=== PATIENT | male | born 1975 | race Caucasian/White ===

== ENCOUNTER 2020-04-07 23:46 | Emergency (ER) | payer OTHER, SELFPAY ==
[2020-04-07 23:49] VITALS: BP 124/89; PULSE 61; RESP 18; TEMP 37.1; O2SAT 99; BMI 29.2
--- NOTE | 2020-04-08 00:18 | EKG12_ITS ---
Test Reason : DYSRHYTHMIA Blood Pressure : / mmHG Vent. Rate : 063 BPM Atrial Rate : 063 BPM P-R Int : 186 ms QRS Dur : 150 ms QT Int : 440 ms P-R-T Axes : 036 044 001 degrees QTc Int : 450 ms Normal sinus rhythm Right bundle branch block Abnormal ECG Confirmed by MARQUEZ CLEMENS MD ([id number]), desk editor SAMI MADDOX ([id number]) on 04/12/2020 7:54:40 AM Also confirmed by MARQUEZ CLEMENS MD ([id number]), desk editor ARNOLDO AVERY ([id number] on 04/13/2020 8:51:12 AM Referred By: JONI Confirmed By:BRITTANY CLEMENS MD
--- NOTE | 2020-04-08 00:23 | ED.DCSUM_ITS ---
History of Present Illness Chief Complaint: Syncope Informant: Patient Onset: Today Narrative: Patient brought by EMS from a football game for syncopal episode. He states he has been on his feet since 6 PM nearly 6 hours now, states he was talking with another person, they were telling him about family member having a heart attack. He states he felt tingling in his chest and lightheaded, next thing he knew he will do he was awake eating. No previous similar symptoms in the past. Reported he was sweaty and hypotensive responded to fluids. He denies any recent vomiting or diarrhea. Denies urinary symptoms. Denies any cough or fevers. He denies any past medical history. No similar events in the past. Currently feels back to normal. Prior similar symptoms: No Past Medical History - Allergies and Home Meds Allergies/Adverse Reactions: Allergies No Known Allergies Allergy (Verified 04/07/20 23:47) Primary Care Physician: Cricket Manzo MD [Primary Care Provider] - Past Medical History: None Smoking Status: Never smoker Review of Systems General: Denies: Chills, Fever, Sweats Eyes: Denies: Visual changes - bilaterally, Diplopia ENT: Denies: Rhinorrhea, Sore throat Cardiovascular: Denies: Chest pain, Palpitations Respiratory: Denies: Dyspnea, Cough, Dyspnea on exertion Gastrointestinal: Denies: Abdominal pain, Nausea, Vomiting, Diarrhea, Melena, Hematochezia Genitourinary: Denies: Dysuria, Hematuria, Frequency Musculoskeletal: Denies: Back pain, Extremity Pain Skin: Denies: Rash, Wounds Neurological: Reports: - - Syncope. Denies: Headache, Weakness, Numbness Physical Exam Vital Signs/Narrative: Vital Signs Temp Pulse Resp BP Pulse Ox 04/07/20 23:49 98.8 F 61 18 124/89 H 99 Inital Vital Signs reviewed: Yes General: Well nourished, Well developed, No Acute Distress Head: Normocephalic, Atraumatic Eyes: Perrl, EOMI ENT: Moist mucous membranes, No rhinorrhea Neck: Supple, Nontender Cardiovascular: Regular rate, Regular rhythm, No murmurs Respiratory: No distress, CTA bilaterally, Chest nontender Abdomen: Soft, Nontender, Nondistended, Normal bowel sounds Back: Nontender, Normal Inspection Extremities: Nontender, No edema Skin: Normal color, No rash Neurological: Alert, Oriented x3, Cranial nerves II-XII grossly intact, Normal Strength, Normal Sensation Psychological: Normal affect, Normal Mood Diagnostic/Tx/Re-eval Clinical Impression(s) from Imaging Studies Chest X-Ray 04/08/20 00:25 IMPRESSION: Negative x-ray examination of the chest. Electronically Signed: Ajay Thomas, at 0:46 EDT Tel , Service support , Abnormal Lab Results 04/07/20 04/07/20 23:58 23:58 WBC 7.7 RBC 5.61 Hgb 16.4 Hct 48.2 MCV 85.9 MCH 29.2 MCHC 34.0 RDW Std Deviation 41.1 RDW Coeff of Sonia 13.2 Plt Count 187 MPV 10.6 Immature Gran % (Auto) 0.800 Neut % (Auto) 54.5 Lymph % (Auto) 34.7 [place] % (Auto) 8.2 Eos % (Auto) 1.3 Baso % (Auto) 0.5 Absolute Neuts (auto) 4.2 Absolute Lymphs (auto) 2.68 Nucleated RBC % 0 Sodium 136 Potassium 5.0 Chloride 106 Carbon Dioxide 25.0 Anion Gap 5 BUN 24 H Creatinine 0.97 Estim Creat Clear Calc 100.34 Est GFR (MDRD) Af Amer 108 Est GFR (MDRD) Non-Af 89 BUN/Creatinine Ratio 24.7 H Glucose 87 Calcium 8.4 L Troponin I < 0.015 - EKG Initial EKG Interpretation: Sinus Rhythm - Sinus rate of 63, no ST changes, T wave inversion in leads III. Right bundle branch block. QTc 450. - Medical Decision Making Patient vitals stable no focal neurological deficits. Feeling back to normal. EKG notes a right bundle branch block. QTc normal. Labs evaluated, normal BUN/creatinine ratio greater than 20. He is status post IV fluids from EMS there is no clinical dehydration on exam in the ED however he was out side for 6 hours with decreased oral intake. Discussed likely cause with a component of vasovagal episode causing his initial low blood pressure. He is ambulating in the ED with no return of symptoms. He will follow-up with his PCP for further evaluation as outpatient. He will return if any worsening symptoms. All questions were answered. ED Disposition - Plan for ED Patient: Disposition: Home or Assisted Living Diagnosis: Syncope, RBBB Instructions: ED Fainting Uncertain Cause Referrals: Cricket Manzo MD [Primary Care Provider] - 3-5 Days
[2020-04-08 00:25] LABS: Absolute Lymphocyte Count 2.68 X10^3/uL (0.83-4.51); Absolute Neutrophil Count 4.2 X10^3/uL (2.0-7.7); Basophil# 0.04 X10^3/uL; Basophil% 0.5 % (0-1); Eosinophils% 1.3 % (0-5); Hematocrit 48.2 % (40-54); Hemoglobin 16.4 g/dL (13.0-16.5); Lymphocyte # 2.68 X10^3/ul (4.0); Lymphocyte % 34.7 % (19-41); Mean Corpuscular Hgb 29.2 pg (27.0-32.0); Mean Corpuscular Volume 85.9 fL (80-94); Mean Platelet Vol. 10.6 fl (6.2-12.0); Monocyte# 0.63 X10^3/uL; Monocyte% 8.2 % (0-10); NRBC Flagged by Analyzer 0 % (0-5); Neutrophil # 4.21 X10^3/uL (2.7-7.7); Neutrophil % 54.5 % (47-70); Platelet Count 187 K/mm3 (150-450); RBC Distribution Width CV 13.2 % (11.6-14.6); RBC Distribution Width SD 41.1 fl (35.1-43.9); Red Blood Count 5.61 M/mm3 (4.6-6.2); White Blood Count 7.7 K/mm3 (4.4-11.0)
--- NOTE | 2020-04-08 00:25 | RAD_ITS ---
STUDY: X-RAY CHEST REASON FOR EXAM: Male, 44 years old. patient has roughly 30 sec syncopal event, per ems pale, sweaty, and hypotensive. Patient condition improved with IV fluids TECHNIQUE: Frontal view COMPARISON: None. FINDINGS: The lungs are clear and expanded. There is no demonstrated pleural abnormality. Normal size heart. Normal mediastinum and jesica. Normal visualized pulmonary arteries. Normal visualized aortic arch and descending thoracic aorta. Normal visualized thoracic spine. Normal visualized ribs, clavicles, and shoulders. There is no demonstrated abnormality of the visualized soft tissue structures of the upper abdomen. RAD/Chest 1 View (Portable) IMPRESSION: Negative x-ray examination of the chest. Electronically Signed: Ajay Thomas, at 0:46 EDT Tel , Service support ,
[2020-04-08 00:41] LABS: Anion Gap 5 (5-15); BUN 24 mg/dL (7-18); BUN/Creat Ratio 24.7 RATIO (10-20); Calcium,Total 8.4 mg/dL (8.5-10.1); Chloride 106 mmol/L (98-107); Creatinine, Serum 0.97 mg/dL (0.70-1.30); EST Glomerular Filtration Rate 89 mL/min (>60); Est Glom Filt Rate - Afr Amer 108 mL/min (>60); Estimated Creatinine Clearance 100.34 ml/min; Glucose 87 mg/dL (74-106); Sodium Level 136 mmol/L (136-145)
[2020-04-08 01:03] VITALS: BP 123/81; PULSE 59; RESP 18; O2SAT 98
[2020-04-08 01:17] VITALS: BP 123/83; PULSE 58; RESP 16; O2SAT 99
== END 2020-04-08 01:20 | disposition home or self-care (01) ==
PROVIDERS: Emergency Provider Emergency Medicine; PCP Family Medicine
DX: R55 Syncope and collapse (principal); I45.10 Unspecified right bundle-branch block
CPT/HCPCS: 71045; 71046; 80048; 84484; 85025; 93005; 99285; A4216

== ENCOUNTER → 2020-04-25 09:38 | Outpatient (CLI) | payer OTHER, SELFPAY ==
[2020-04-13 13:18] VITALS: BMI 27.2
--- NOTE | 2020-04-25 09:38 | ECHOD_ITS ---
Reason For Study: Syncope Procedure This was a 2D Doppler, Color Flow transthoracic echocardiogram. Exam performed in department. Left Ventricle Normal LV size. Mild global left ventricular systolic dysfunction. The estimated ejection fraction is 47 %. Normal diastology for age. No regional wall motion abnormalities noted. Right Ventricle Normal RV size. Normal systolic function. Atria Normal left atrium. Normal right atrium. Mitral Valve Normal mitral valve. Tricuspid Valve Normal tricuspid valve. Aortic Valve Trisinus/trileaflet aortic valve. Pulmonic Valve Normal pulmonic valve. Great Vessels Normal aortic root. The pulmonary artery is normal size. Normal inferior vena cava. Pericardium/Pleural No pericardial effusion. MMode/2D Measurements & Calculations LVIDd: 5.3 cm IVSd: 1.0 cm Ao root diam: 3.3 cm LVIDs: 4.0 cm LVPWd: 0.92 cm RVDd: 3.4 cm FS: 26.0 % LAV(MOD-bp): 62.6 ml LVAd ap4: 37.9 cm2 SV(MOD-sp4): 60.6 ml LAV(MOD-bp) Indexed: 31.0 ml/m2 EDV(MOD-sp4): 135.9 ml LAV(MOD-sp2): 65.8 ml EDV(sp4-el): 141.9 ml LAV(MOD-sp4): 58.7 ml LVAs ap4: 26.9 cm2 ESV(MOD-sp4): 75.2 ml ESV(sp4-el): 77.5 ml EF(MOD-sp4): 44.6 % EF(sp4-el): 45.4 % SV(sp4-el): 64.4 ml LA A4 area: 19.6 cm2 LA dimension(2D): 3.3 cm RA A4 area: 16.5 cm2 Doppler Measurements & Calculations MV E max mando: 61.2 cm/sec Lat Peak E' Mando: 11.5 cm/sec Med Peak E' Mando: 10.9 cm/sec MV A max mando: 50.3 cm/sec E/E' lat: 5.3 E/E' med: 5.6 MV E/A: 1.2 Ao V2 max: 94.8 cm/sec LV V1 max: 80.3 cm/sec PA V2 max: 87.8 cm/sec Ao max P.6 mmHg LV V1 max P.6 mmHg Interpretation Summary Normal LV size. Mild global left ventricular systolic dysfunction. The estimated ejection fraction is 47 %. Normal diastology for age. Structurally normal valves. Ordering Physician: Adan Devi Referring Physician: Cricket Manzo Performed By: Mel De Leon RDCS
== END ==
PROVIDERS: PCP Family Medicine; Referring Provider Internal Medicine Cardiovascular Disease; Visit Provider Internal Medicine Cardiovascular Disease
DX: I45.10 Unspecified right bundle-branch block (principal); R55 Syncope and collapse
CPT/HCPCS: 93225; 93226; 93306

== ENCOUNTER 2020-07-26 12:05 | Emergency (ER) | payer OTHER, SELFPAY ==
[2020-04-13 13:18] VITALS: BMI 27.2
[2020-07-26 12:06] VITALS: BP 159/100; PULSE 70; RESP 16; TEMP 36.6; O2SAT 100; BMI 27.2
--- NOTE | 2020-07-26 12:13 | EKG12_ITS ---
Test Reason : SYNCOPE Blood Pressure : / mmHG Vent. Rate : 062 BPM Atrial Rate : 062 BPM P-R Int : 174 ms QRS Dur : 148 ms QT Int : 424 ms P-R-T Axes : 036 053 021 degrees QTc Int : 430 ms Normal sinus rhythm Right bundle branch block Abnormal ECG Confirmed by SARATH LEON, MARQUEZ ([id number]), film editor SAMI MADDOX ([id number]) on 08/03/2020 10:19:00 AM Referred By: JANY/ANSELMO Confirmed By:BRITTANY CLEMENS MD
--- NOTE | 2020-07-26 12:25 | RAD_ITS ---
STUDY: X-RAY CHEST REASON FOR EXAM: Male, 44 years old. NEAR SYNCOPE, LIGHTHEADED, CHEST HEAVINESS. TECHNIQUE: Single AP portable view of the chest. COMPARISON: Comparison is made with prior study dated 04/08/2020. FINDINGS: EKG electrodes are seen. The lungs are clear and expanded. There is no demonstrated pleural abnormality. Normal size heart. Normal mediastinum and jesica. Normal visualized pulmonary arteries. Normal visualized aortic arch and descending thoracic aorta. Normal visualized thoracic spine. Normal visualized ribs, clavicles, and shoulders. There is no demonstrated abnormality of the visualized soft tissue structures of the upper abdomen. RAD/Chest 1 View (Portable) IMPRESSION: Normal x-ray examination of the chest. Electronically Signed: Saul Padron, at 12:35 EST , Service support ,
[2020-07-26 12:29] VITALS: BP 121/88; BP 128/88; BP 169/84; PULSE 67; PULSE 71; PULSE 72
[2020-07-26 12:35] LABS: Absolute Lymphocyte Count 2.24 X10^3/uL (0.83-4.51); Absolute Neutrophil Count 4.2 X10^3/uL (2.0-7.7); Basophil# 0.05 X10^3/uL; Basophil% 0.7 % (0-1); Eosinophil# 0.06 X10^3/uL; Eosinophils% 0.8 % (0-5); Hematocrit 54.3 % (40-54); Lymphocyte # 2.24 X10^3/ul (4.0); Lymphocyte % 30.7 % (19-41); Mean Corp Hgb Conc 34.3 g/dL (32-36); Mean Corpuscular Hgb 29.3 pg (27.0-32.0); Mean Corpuscular Volume 85.5 fL (80-94); Mean Platelet Vol. 10.1 fl (6.2-12.0); Monocyte# 0.64 X10^3/uL; Monocyte% 8.8 % (0-10); NRBC Flagged by Analyzer 0 % (0-5); Neutrophil # 4.23 X10^3/uL (2.7-7.7); Platelet Count 226 K/mm3 (150-450); RBC Distribution Width CV 13.3 % (11.6-14.6); RBC Distribution Width SD 41.1 fl (35.1-43.9); Red Blood Count 6.35 M/mm3 (4.6-6.2); White Blood Count 7.3 K/mm3 (4.4-11.0)
--- NOTE | 2020-07-26 12:37 | ED.VIS.GEN ---
History of Present Illness Chief Complaint: Syncope Informant: Patient Narrative: Patient is a 44-year-old male who presents to the emergency department for near syncopal symptoms. He felt like he could have passed out. He did have similar symptoms multiple months ago and had a full cardiology work-up including echocardiogram. They did not find anything wrong at that time. He was started on antianxiety medications as this all occurred after he was talking with somebody about heart attacks. His symptoms returned today. He never had any complete loss of consciousness but felt he could. He denies any palpitations, he does have some chest heaviness but no chest pain or shortness of breath. He denies any recent illness including any cough, nausea/vomiting or diarrhea. No fevers or chills. No leg swelling or calf pain. No history of DVT/PE or heart attacks. Past Medical History - Allergies and Home Meds Allergies/Adverse Reactions: Allergies No Known Allergies Allergy (Verified 07/26/20 12:08) Primary Care Physician: Cricket Manzo MD [Primary Care Provider] - 2 Days Prior records reviewed: Yes Smoking Status: Never smoker Review of Systems All systems negative except as indicated General: Denies: Chills, Fever, Sweats Eyes: Denies: Visual changes - bilaterally, Diplopia ENT: Denies: Rhinorrhea, Sore throat Cardiovascular: Reports: - - Lightheadedness. Denies: Chest pain, Palpitations Respiratory: Denies: Dyspnea, Cough, Dyspnea on exertion Gastrointestinal: Denies: Abdominal pain, Nausea, Vomiting, Diarrhea Genitourinary: Denies: Dysuria, Hematuria, Frequency Musculoskeletal: Denies: Back pain, Extremity Pain Skin: Denies: Rash, Wounds Neurological: Denies: Headache, Weakness, Numbness Psych: Reports: Anxiety Physical Exam Vital Signs/Narrative: Vital Signs Temp Pulse Pulse Pulse Pulse Resp BP 07/26/20 12:29 67 71 72 07/26/20 12:06 97.8 F 70 16 159/100 H BP BP BP Pulse Ox 07/26/20 12:29 121/88 H 169/84 H 128/88 H 07/26/20 12:06 100 Inital Vital Signs reviewed: Yes General: Well nourished, Well developed, No Acute Distress Head: Normocephalic, Atraumatic Eyes: Perrl, EOMI ENT: Moist mucous membranes, No rhinorrhea Neck: Supple, Nontender Cardiovascular: Regular rate, Regular rhythm, No murmurs Respiratory: No distress, CTA bilaterally, Chest nontender Abdomen: Soft, Nontender, Nondistended, Normal bowel sounds Back: Nontender, Normal Inspection Extremities: Nontender, No edema. Negative for: Calf Tenderness Skin: Normal color, No rash Neurological: Alert, Oriented x3, Cranial nerves II-XII grossly intact, Normal Strength, Normal Sensation Psychological: Normal affect, Normal Mood Diagnostic/Tx/Re-eval Chest X-Ray - ED: - - Single view portable x-ray interpreted by myself. Clear lung gramajo bilaterally. Normal cardiac silhouette. Normal mediastinum. Agree with radiologist interpretation. - EKG Initial EKG Interpretation: - - Rate of 62 bpm and normal sinus rhythm. Has a prolonged QRS with right bundle branch block. Otherwise normal intervals. Normal intervals. No significant ST elevations or depressions. There are some T wave inversions in the anterior leads. - Medical Decision Making Patient presents to the emergency department for near syncopal symptoms. On arrival to the emergency department he is denying anything currently. No chest pain, shortness of breath or heart palpitations. Orthostatic vital signs obtained which were negative. Basic lab work, EKG and chest x-ray being obtained. Patient's work-up showed him to have an elevated hemoglobin and this could be related to dehydration. His last hemoglobin was at the higher end of normal. He is given a liter of IV fluid. Did not have any repeat symptoms throughout ED stay. His troponin within normal limits. Low concern for PE. He is to have repeat lab work follow-up with his PCP. At this time he will be discharged home in stable condition. Warning signs and symptoms which to return to the ED are reviewed. He understands and is agreeable this plan. Discharged home in stable condition. All questions were answered. ED Disposition - Plan for ED Patient: Disposition: Home or Assisted Living Diagnosis: Near syncope Instructions: ED Near-Fainting, Uncertain Cause Referrals: Cricket Manzo MD [Primary Care Provider] - 2 Days
[2020-07-26 12:42] LABS: Differential Indicated SCAN CRITERIA MET; Hemoglobin 18.6 g/dL (13.0-16.5)
[2020-07-26 12:48] LABS: Anion Gap 4 (5-15); BUN 15 mg/dL (7-18); BUN/Creat Ratio 15.6 RATIO (10-20); Chloride 102 mmol/L (98-107); Creatinine, Serum 0.96 mg/dL (0.70-1.30); EST Glomerular Filtration Rate 90 mL/min (>60); Est Glom Filt Rate - Afr Amer 109 mL/min (>60); Estimated Creatinine Clearance 101.39 ml/min; Glucose 98 mg/dL (74-106); Potassium 4.1 mmol/L (3.5-5.1); Sodium Level 137 mmol/L (136-145)
[2020-07-26] MEDS: 0.9% Normal Saline 1,000 ML 999 ML IV (13:13)
[2020-07-26 13:18] VITALS: BP 120/78; PULSE 56; RESP 18; O2SAT 97
[2020-07-26 14:26] VITALS: BP 137/71; PULSE 59; RESP 16; O2SAT 98
[2020-07-27 12:55] LABS: Pathologist Review Reviewed
== END 2020-07-26 14:27 | disposition home or self-care (01) ==
PROVIDERS: Emergency Provider Emergency Medicine; PCP Family Medicine
DX: R55 Syncope and collapse (principal)
CPT/HCPCS: 71045; 80048; 84484; 85025; 93005; 99284; J7030; A4216

== ENCOUNTER 2020-12-01 11:14 | Emergency (ER) | payer OTHER, SELFPAY ==
[2020-12-01 11:15] VITALS: BP 148/92; PULSE 64; RESP 18; TEMP 36.5; O2SAT 97; BMI 28.7
--- NOTE | 2020-12-01 11:27 | RAD_ITS ---
STUDY: X-RAY CHEST REASON FOR EXAM: Male, 45 years old. Chest pain TECHNIQUE: Single AP portable view of the chest. COMPARISON: Comparison is made with prior study dated 07/26/2020. FINDINGS: EKG electrodes are seen. The lungs are clear and expanded. There is no demonstrated pleural abnormality. Normal size heart. Normal mediastinum and jesica. Normal visualized pulmonary arteries. Normal visualized aortic arch and descending thoracic aorta. Normal visualized thoracic spine. Normal visualized ribs, clavicles, and shoulders. There is no demonstrated abnormality of the visualized soft tissue structures of the upper abdomen. RAD/Chest 1 View (Portable) IMPRESSION: Normal x-ray examination of the chest. Electronically Signed: Saul Padron MD at 12:10 EDT , Service support ,
--- NOTE | 2020-12-01 11:27 | ED.DCSUM_ITS ---
History of Present Illness Chief Complaint: Chest Pain Informant: Patient Narrative: 45-year-old male presents to the emergency department with the chief complaint of chest pain. He tells me that he has a burning central discomfort with a component of dizziness and lightheadedness. He tells me that in the fall of last year he was seen in the emergency department following a syncopal event. He followed up with cardiology had echocardiogram and Holter monitor that were negative and is felt that it was a vasovagal event. He tells me that this burning sensation that waxes and wanes but usually is ever present has been around for probably years. Tells me that his PCP started on him on an unknown medication for anxiety with as needed Vistaril. He states that he does not believe that that is actually helping him. - Past Medical History (1) Right bundle branch block (RBBB) Status: Acute Past Medical History - Allergies and Home Meds Allergies/Adverse Reactions: Allergies No Known Allergies Allergy (Verified 12/01/20 11:14) Primary Care Physician: Cricket Manzo MD [Primary Care Provider] - Surgical History: noncontributory Lives: With Family Smoking Status: Never smoker Drugs: None Review of Systems General: Denies: Chills, Fever, Sweats Eyes: Denies: Visual changes - bilaterally, Diplopia ENT: Denies: Rhinorrhea, Sore throat Cardiovascular: Reports: Chest pain. Denies: Palpitations Respiratory: Denies: Dyspnea, Cough, Dyspnea on exertion Gastrointestinal: Denies: Abdominal pain, Nausea, Vomiting, Diarrhea, Melena, Hematochezia Genitourinary: Denies: Dysuria, Hematuria, Frequency Musculoskeletal: Denies: Back pain, Extremity Pain Skin: Denies: Rash, Wounds Neurological: Reports: - - Dizziness/lightheadedness. Denies: Headache, Weak ness, Numbness Physical Exam Vital Signs/Narrative: Vital Signs Temp Pulse Resp BP Pulse Ox 12/01/20 11:15 97.7 F L 64 18 148/92 H 97 Inital Vital Signs reviewed: Yes General: Well nourished, Well developed, No Acute Distress Head: Normocephalic, Atraumatic Eyes: Perrl, EOMI ENT: Moist mucous membranes, No rhinorrhea Neck: Supple, Nontender Cardiovascular: Regular rate, Regular rhythm, No murmurs Respiratory: No distress, CTA bilaterally, Chest nontender Abdomen: Soft, Nontender, Nondistended, Normal bowel sounds Back: Nontender, Normal Inspection Extremities: Nontender, No edema Skin: Normal color, No rash Neurological: Alert, Oriented x3, Cranial nerves II-XII grossly intact, Normal Strength, Normal Sensation Psychological: Normal affect, Normal Mood Diagnostic/Tx/Re-eval Clinical Impression(s) from Imaging Studies Chest X-Ray 12/01/20 11:27 IMPRESSION: Normal x-ray examination of the chest. Electronically Signed: Saul Padron MD at 12:10 EDT , Service support , Laboratory Last Values WBC 5.7 K/mm3 (4.4-11.0) 12/01/20 11:40 RBC 6.15 M/mm3 (4.6-6.2) 12/01/20 11:40 Hgb 17.4 g/dL (13.0-16.5) H 12/01/20 11:40 Hct 52.1 % (40-54) 12/01/20 11:40 MCV 84.7 fL (80-94) 12/01/20 11:40 MCH 28.3 pg (27.0-32.0) 12/01/20 11:40 MCHC 33.4 g/dL (32-36) 12/01/20 11:40 RDW Std Deviation 40.2 fl (35.1-43.9) 12/01/20 11:40 RDW Coeff of Sonia 13.1 % (11.6-14.6) 12/01/20 11:40 Plt Count 201 K/mm3 (150-450) 12/01/20 11:40 MPV 10.2 fl (6.2-12.0) 12/01/20 11:40 Immature Gran % (Auto) 0.500 % (0.0-0.9) 12/01/20 11:40 Neut % (Auto) 59.1 % (47-70) 12/01/20 11:40 Lymph % (Auto) 28.8 % (19-41) 12/01/20 11:40 [place] % (Auto) 9.5 % (0-10) 12/01/20 11:40 Eos % (Auto) 1.4 % (0-5) 12/01/20 11:40 Baso % (Auto) 0.7 % (0-1) 12/01/20 11:40 Absolute Neuts (auto) 3.3 X10^3/uL (2.0-7.7) 12/01/20 11:40 Absolute Lymphs (auto) 1.63 X10^3/uL (0.83-4.51) 12/01/20 11:40 Nucleated RBC % 0 % (0-5) 12/01/20 11:40 Sodium 139 mmol/L (136-145) 12/01/20 11:40 Potassium 4.1 mmol/L (3.5-5.1) 12/01/20 11:40 Chloride 104 mmol/L (98-107) 12/01/20 11:40 Carbon Dioxide 33.0 mmol/L (21.0-32.0) H 12/01/20 11:40 Anion Gap 2 (5-15) L 12/01/20 11:40 BUN 16 mg/dL (7-18) 12/01/20 11:40 Creatinine 1.01 mg/dL (0.70-1.30) 12/01/20 11:40 Estim Creat Clear Calc 95.37 ml/min 12/01/20 11:40 Est GFR (MDRD) Af Amer 103 mL/min (>60) 12/01/20 11:40 Est GFR (MDRD) Non-Af 85 mL/min (>60) 12/01/20 11:40 BUN/Creatinine Ratio 15.8 RATIO (10-20) 12/01/20 11:40 Glucose 95 mg/dL (74-106) 12/01/20 11:40 Calcium 9.0 mg/dL (8.5-10.1) 12/01/20 11:40 Troponin I < 0.015 ng/mL (<0.045) 12/01/20 11:40 - EKG Initial EKG Interpretation: Sinus Rhythm - EKG demonstrates a normal sinus rhythm at a rate of 61 with a right bundle branch block. Unchanged compared to prior - Medical Decision Making My interpretation of the single view portable chest x-ray is no acute process per radiology concurs. Troponin negative CBC and BMP negative. His EKG is a normal sinus rhythm. I think that this is low likelihood to be cardiac in nature. He states that the anxiety approach has not helped him at all. I gave him a GI cocktail. He states that that did not really change his symptoms. He complains a lot about fatigue and poor sleep. I wonder if he needs a sleep study. Also he may need an EGD. I am going to advise him to follow-up with his primary care doctor for this. ED Disposition - Plan for ED Patient: Diagnosis: Chest pain Instructions: ED Chest Pain, Uncertain Cause Referrals: Cricket Manzo MD [Primary Care Provider] - (You may wish to discuss a sleep study and a EGD to further evaluate your symptoms)
--- NOTE | 2020-12-01 11:27 | EKG12_ITS ---
Test Reason : Blood Pressure : / mmHG Vent. Rate : 061 BPM Atrial Rate : 061 BPM P-R Int : 180 ms QRS Dur : 142 ms QT Int : 408 ms P-R-T Axes : 030 043 009 degrees QTc Int : 410 ms Normal sinus rhythm with sinus arrhythmia Right bundle branch block Abnormal ECG Confirmed by SARATH LEON, MARQUEZ ([id number]), fashion editor SAMI MADDOX ([id number]) on 12/02/2020 8:23:42 AM Referred By: MAAME Confirmed By:BRITTANY CLEMENS MD
[2020-12-01] MEDS: Mag Hydrox/Al Hydrox/Simeth 30 ML UDC PO (11:37)
[2020-12-01 11:48] LABS: Absolute Lymphocyte Count 1.63 X10^3/uL (0.83-4.51); Absolute Neutrophil Count 3.3 X10^3/uL (2.0-7.7); Basophil# 0.04 X10^3/uL; Basophil% 0.7 % (0-1); Eosinophil# 0.08 X10^3/uL; Eosinophils% 1.4 % (0-5); Hematocrit 52.1 % (40-54); Hemoglobin 17.4 g/dL (13.0-16.5); Lymphocyte # 1.63 X10^3/ul (0.83-4.51); Lymphocyte % 28.8 % (19-41); Mean Corp Hgb Conc 33.4 g/dL (32-36); Mean Corpuscular Hgb 28.3 pg (27.0-32.0); Mean Corpuscular Volume 84.7 fL (80-94); Mean Platelet Vol. 10.2 fl (6.2-12.0); Monocyte# 0.54 X10^3/uL; Monocyte% 9.5 % (0-10); NRBC Flagged by Analyzer 0 % (0-5); Neutrophil # 3.34 X10^3/uL (2.7-7.7); Neutrophil % 59.1 % (47-70); Platelet Count 201 K/mm3 (150-450); RBC Distribution Width CV 13.1 % (11.6-14.6); RBC Distribution Width SD 40.2 fl (35.1-43.9); Red Blood Count 6.15 M/mm3 (4.6-6.2); White Blood Count 5.7 K/mm3 (4.4-11.0)
[2020-12-01 12:01] LABS: Anion Gap 2 (5-15); BUN 16 mg/dL (7-18); BUN/Creat Ratio 15.8 RATIO (10-20); Chloride 104 mmol/L (98-107); Creatinine, Serum 1.01 mg/dL (0.70-1.30); EST Glomerular Filtration Rate 85 mL/min (>60); Est Glom Filt Rate - Afr Amer 103 mL/min (>60); Estimated Creatinine Clearance 95.37 ml/min; Glucose 95 mg/dL (74-106); Potassium 4.1 mmol/L (3.5-5.1); Sodium Level 139 mmol/L (136-145)
[2020-12-01 12:42] VITALS: BP 130/87; PULSE 64; RESP 16; O2SAT 98
== END 2020-12-01 12:42 | disposition home or self-care (01) ==
PROVIDERS: Emergency Provider Emergency Medicine; PCP Family Medicine
DX: R07.9 Chest pain, unspecified (principal); R42 Dizziness and giddiness
CPT/HCPCS: 71045; 80048; 84484; 85025; 93005; 99285

== ENCOUNTER → 2020-12-26 08:09 | Outpatient (CLI) | payer OTHER, SELFPAY ==
[2020-12-01 11:15] VITALS: BMI 28.7
--- NOTE | 2020-12-26 08:10 | RAD_ITS ---
STUDY: UPPER GI WITH AIR CONTRAST REASON FOR EXAM: Male, 45 years old. Dysphagia, heartburn RADIATION DOSAGE (If Supplied By Facility): CTDIvol = ( ) mGy, DLP = ( ) mGycm. Individualized dose optimization techniques were used for this CT.? FLUOROSCOPY TIME (if supplied): ( 54 )seconds, 8 cm films obtained TECHNIQUE: Air-contrast COMPARISON: None. FINDINGS: Swallowing was initiated normally. No nasopharyngeal reflux or aspiration. No Zenker''s diverticulum noted on the lateral view. Normal peristaltic activity noted in the esophagus. No evidence of hiatal hernia or GE reflux. Stomach distends normally without evidence of rugal fold enlargement or mucosal ulceration. The duodenal C-loop is not elongated. Ligament of Treitz is in its normal expected position left of the spine. RAD/Upper GI Dual Contrast IMPRESSION: Normal study Electronically Signed: Guy Wilson MD at 10:27 EDT , Service support ,
== END ==
PROVIDERS: PCP Family Medicine; Referring Provider Family Medicine; Visit Provider Family Medicine
DX: R12 Heartburn (principal)
CPT/HCPCS: 74246

== ENCOUNTER → 2021-05-29 11:30 | Outpatient (CLI) | payer OTHER, SELFPAY ==
--- NOTE | 2021-05-29 13:51 | STRESSREP ---
Stress Test Report Exercise stress test. 45-year-old male with a history of presyncope. Stress protocol: Resting EKG demonstrates normal sinus rhythm with a rate of 62 bpm, right bundle branch block intervals are noted resting blood pressure is 128/78 mmHg. The patient exercised according to the regular [place] protocol for total duration of 10 minutes and 15 seconds. Patient completed 1 minute and 15 seconds into stage IV of the Hen[place] protocol the maximum heart rate attained was 169 bpm which was 96% of max infected heart rate the maximum workload was 13.4 metabolic equivalents. The patient maintained sinus rhythm throughout the recording. At rest there were no ST or T wave changes noted to suggest ischemia and at peak exercise upsloping ST changes only were noted with did not meet the criteria for ischemia. No clinical angina was noted the test was terminated due to attainment of target heart rate. The peak blood pressure was 190/60 mmHg. Conclusion: Exercise stress test with no EKG criteria for ischemia at a high workload. Excellent functional capacity. No arrhythmias noted.
== END ==
PROVIDERS: PCP Family Medicine; Referring Provider Internal Medicine Cardiovascular Disease; Visit Provider Internal Medicine Cardiovascular Disease
DX: R55 Syncope and collapse (principal)
CPT/HCPCS: 93017

== ENCOUNTER 2023-03-26 06:17 | Day surgery (SDC) | payer OTHER, SELFPAY ==
[2023-03-26] MEDS: Lactated Ringers 1,000 ML 15 ML IV (06:30)
[2023-03-26 06:41] VITALS: BP 130/90; PULSE 61; RESP 18; TEMP 36.1; O2SAT 97; BMI 30.3
--- NOTE | 2023-03-26 06:45 | PCM.HP.BLA ---
History and Physical Date of Admission: 03/26/23 Intake Vital Signs 05/16/2112:49 02/25/2309:51 Height 5 ft 10 in 5 ft 10 in Weight: 216 lb BMI 30.9 BP 127/80 H Blood Pressure Location Rt brachial Position Sitting Respiration 17 Pulse 6 L Pulse Source Monitor Temp 97.5 F L Temp Source Temporal Pulse Oximetry (%) 975 Oxygen Delivery Method room air Intake Visit Reasons: UPPER & LOWER FOR GERD Chief Complaint: upper and lower scopes Is patient in pain?: No Allergies No Known Allergies Allergy (Verified 02/25/23 09:53) Medications hydroxyzine HCl 25 mg tablet 25 mg PO DAILY PRN 05/16/21 [History Confirmed 02/25/23] PFSH Medical History Anxiety Cardiomyopathy Right bundle branch block (RBBB) Vasovagal syncope (04/08/20) Surgical History H/O arthroscopic knee surgery Family History Father CVA (cerebral vascular accident) Social History Smoking Status: Never smoker Smokeless tobacco user: chewing tobacco alcohol intake: current alcohol intake frequency: holidays/special occasions only HPI HPI HPI: Patient is here complaining of GERD. The patient reports that he has been having GERD for a long time and reports that spicy foods or red sauce caused him to have reflux and cause him to have immediate loose stools. He did have some improvement on omeprazole but only took it for 2 weeks and then stopped. ROS General General: Yes fatigue; No weight change, appetite, colon cancer, breast cancer or weakness HEENT HEENT: No difficulty swallowing, eye injury, eye surgery, swollen glands or hoarseness Endo Endocrine: No thyroid disease, diabetes mellitus, thyroid cancer, Hair loss, heat intolerance or cold intolerance Skin Skin: No rash or changing moles Musc Musculoskeletal: Yes gout; No back problems, arthritis, rheumatoid arthritis or joint pain Cardio Cardiovascular: No murmur, pacemaker, heart disease, atrial fibrillation, high blood pressure, heart attack, heart stent, palpitations, shortness of breat with exertion or chest pain Psych Psychiatric: Yes anxiety; No depression or hearing voices Resp Respiratory: No shortness of breath, Yes sleep apnea, No cough, No COPD, No asthma, No emphysema and No wheezing Gastro Gastrointestinal: Yes abdominal pain, Yes nausea or vomiting, No diarrhea, No constipation, No blood in stool, Yes acid reflux, No hemorrhoids, No ulcers, No gallbladder problem and No black,tarry stools Raul Hematologic: No blood thinners, No blood disorders, No bleeding, No anemia and No blood clots Neuro Neurologic: No system reviewed and no additional complaints, except as documented, No as per HPI, No abnormal gait, No abnormal hearing, No abnormal movements, No abnormal speech, No behavioral changes, No burning sensations, No confusion, No convulsions, No disequilibrium, No dizziness, No localized weakness, No frequent falls, No headache(s), No lack of coordination, No loss of vision, No memory loss, No numbness, No other visual disturbances, No radicular pain, No restless legs, No sensory deficit, No syncope, No tingling, No tremor(s), No weakness and No other Exam Const General: cooperative Orientation: alert and oriented x3 HENMT Head: normal to inspection Neck Neck: normal visual inspection and full ROM Chest Chest palpation & inspection: normal inspection of the chest Resp Effort & Inspection: normal respiratory effort Auscultation: clear to auscultation bilaterally Cardio Rate: regular rate Rhythm: regular rhythm GI Inspection: non-distended Palpation: soft and nontender Skin General: no rashes or lesions noted Neuro General: patient alert and patient oriented x3 Extrem General: full ROM Psych Appearance: grossly normal Mental Status: mental status grossly normal Assessment and Plan Assessment and Plan (1) Acid reflux: Status: Acute Qualifiers: Esophagitis presence: esophagitis presence not specified Qualified Code(s): K21.9 - Gastro-esophageal reflux disease without esophagitis (2) Screening for malignant neoplasm of colon: Status: Acute Orders: Orders Colonoscopy Today EGD Today Plan Patient has been having acid reflux and loose bowel movements immediately after eating. I recommended the patient resume Prilosec and take it for at least 6 to 8 weeks. I will also plan on EGD and colonoscopy. I explained endoscopy in detail to the patient. I explained the risks including but not limited to stroke or heart attack with anesthesia, perforation of the GI tract, bleeding, infection. I explained that any of these could necessitate further emergency surgery. The patient understands and all questions were answered sufficiently. The patient wishes to proceed with procedure. Chris Vazquez MD Pager: [facility] [address] [place] [address], [address] [place] [address] Office: I have examined the patient and the H&P has been reviewed. There are no clinical changes since date of exam.
--- NOTE | 2023-03-26 07:30 | EGD_PTH ---
PATIENT: ZAHIDA THIBODEAUX LOC: EN U#:[id number] AGE/SX: 47/M ROOM: RE03/26/[address]: Dr. Chris Vazquez MD : 1975 BED: DIS: 03/26/2023 SPEC #: [id number] RECD: 03/26/23 11:43 STATUS: SATURNINO SEBASTIAN #: [id number] DEBRA: 03/26/23 07:[address]: Chris Vazquez DEPT: SURGICAL PATHOLOGY RECD BY: Chika Berg ENTERED: 03/26/23 12:16 SP TYPE: EGD BIOPSY OT DR: Dr. Cricket Manzo MD Tissues: A - Gastric mucous membrane B - Esophagus, NOS Procedures: Special Stain Group II Surgery Specimen Level IV Alcian Blue/PAS (control) HEADER OPERATION: Colonoscopy, EGD with biopsy PRE-OP DIAGNOSIS: Acid reflux, screening TISSUE SUBMITTED: A - Antrum biopsy for H. pylori and path, B - Gastroesophageal junction biopsy MICROSCOPIC DIAGNOSIS A. Gastric antrum, biopsy: Mild chronic gastritis. See comment. B. Gastroesophageal junction, biopsy: Chronic inflammation. No evidence of goblet cell metaplasia. See comment. AM:jane 03/27/2023 COMMENT A. The results of immunohistochemistry for Helicobacter pylori will be reported separately ([id number]). B. Alcian blue/PAS stain with matched control supports the above diagnosis. MICROSCOPIC DESCRIPTION Slides are reviewed. GROSS DESCRIPTION A - Received in fixative is one container labeled with the patient's name and designated gastric antrum. The specimen consists of two irregular fragments of light myles soft tissue that in aggregate measure 1.0 x 0.2 x 0.1 cm. The specimen is totally submitted in one cassette. B - Received in fixative is one container labeled with the patient's name and designated GE junction. The specimen consists of one irregular fragment of light myles soft tissue that measures 0.5 x 0.2 x 0.1 cm. The specimen is totally submitted in one cassette. / AM:jane 03/26/2023 TC:3 CPT: 90901 x2, 57736
--- NOTE | 2023-03-26 07:30 | IMM_PTH ---
PATIENT: ZAHIDA THIBODEAUX LOC: EN U#:[id number] AGE/SX: 47/M ROOM: RE03/26/[address]: Dr. Chris Vazquez MD : 1975 BED: DIS: 03/26/2023 SPEC #: [id number] RECD: 03/26/23 12:19 STATUS: SATURNINO REJade #: [id number] DEBRA: 03/26/23 07:[address]: Chris Vazquez DEPT: IMMUNOHISTOCHEMISTRY RECD BY: Pattie Thomas ENTERED: 03/26/23 12:20 SP TYPE: IMMUNO OTHR DR: Dr. Cricket Manzo MD Tissues: A - Stomach, NOS Procedures: H Pylori (initial) PHYSICIAN & INSTITUTION [place] [address] SPECIMEN INFORMATION: Tissue Source: A - Antrum Clinical Info: Acid reflux, screening Specimen Number: [id number] CPT code: 02381 METHODOLOGY: Deparaffinized sections of prefer/formalin-fixed tissue or PAP/DQ stained slides are incubated with monoclonal/polyclonal antibodies/oligonucleotide probes. Localization is made via biotin free immunoperoxidase method. Appropriate controls are performed and reacted as expected. Results on target cell population are indicated in the following table: RESULTS: ANTIBODY / CLONE RESULT Block A H Pylori (polyclonal) negative These tests were developed and their performance characteristics determined by [facility]. They may not have been cleared or approved by the U.S. Food and Drug Administration. The FDA has determined that such clearance or approval is not necessary. The above immunohistochemical/dualISH markers are ordered and reviewed by the Pathologist. INTERPRETATION: A. Antrum, biopsy: Negative for Helicobacter pylori organisms. AM:jnae 03/27/2023
[2023-03-26 08:01] VITALS: BP 117/73; BP 130/90; PULSE 70; RESP 18; TEMP 36.2; O2SAT 95
--- NOTE | 2023-03-26 08:02 | OP.EGD_ITS ---
Patient Name: Gigi De Leon Procedure Date: 03/26/2023 6:19 AM Date of : 1975 Age: 47 Procedure: Upper GI endoscopy Indications: Heartburn Providers: Chris Vazquez MD Referring MD: Chris Vazquez MD Medicines: Monitored Anesthesia Care Patient Profile: This is a 47 year old male. Refer to note in patient chart for documentation of history and physical. Complications: No immediate complications. Estimated blood loss: Minimal. Procedure: Pre-Anesthesia Assessment: - Prior to the procedure, a History and Physical was performed, and patient medications and allergies were reviewed. The patient's tolerance of previous anesthesia was also reviewed. The risks and benefits of the procedure and the sedation options and risks were discussed with the patient. All questions were answered, and informed consent was obtained. Prior Anticoagulants: The patient has taken no anticoagulant or antiplatelet agents. After reviewing the risks and benefits, the patient was deemed in satisfactory condition to undergo the procedure. After obtaining informed consent, the endoscope was passed under direct vision. Throughout the procedure, the patient's blood pressure, pulse, and oxygen saturations were monitored continuously. The Endoscope was introduced through the mouth, and advanced to the fourth part of duodenum. The upper GI endoscopy was accomplished without difficulty. The patient tolerated the procedure well. Scope In: 7:41:06 AM Scope Out: 7:43:28 AM Total Procedure Duration Time 0 hours 2 minutes 22 seconds Findings: The esophagus was normal. The stomach was normal. The examined duodenum was normal. Biopsies were taken with a cold forceps in the gastric antrum for Helicobacter pylori testing. Biopsies were taken with a cold forceps at the gastroesophageal junction for histology. Impression: - Normal esophagus. - Normal stomach. - Normal examined duodenum. - Biopsies were taken with a cold forceps for Helicobacter pylori testing. - Biopsies were taken with a cold forceps for histology at the gastroesophageal junction. Recommendation: - Discharge patient to home. - Resume previous diet. - Continue present medications. Procedure Code(s): --- Professional --- 45461, Esophagogastroduodenoscopy, flexible, transoral; with biopsy, single or multiple Diagnosis Code(s): --- Professional --- R12, Heartburn CPT copyright 2021 [employer]. All rights reserved. The codes documented in this report are preliminary and upon outpatient coder review may be revised to meet current compliance requirements. Chris Vazquez MD 03/26/2023 8:01:52 AM This report has been signed electronically. Number of Addenda: 0 Note Initiated On: 03/26/2023 6:19 AM
--- NOTE | 2023-03-26 08:03 | OP.COLON_ITS ---
Patient Name: Gigi De Leon Procedure Date: 03/26/2023 7:45 AM Date of : 1975 Age: 47 Procedure: Colonoscopy Indications: Screening for colorectal malignant neoplasm Providers: Chris Vazquez MD Referring MD: Chris Vazquez MD Medicines: Monitored Anesthesia Care Patient Profile: This is a 47 year old male. Refer to note in patient chart for documentation of history and physical. Last Colonoscopy: none. The patient's first colonoscopy is today. Complications: No immediate complications. Procedure: Pre-Anesthesia Assessment: - Prior to the procedure, a History and Physical was performed, and patient medications and allergies were reviewed. The patient's tolerance of previous anesthesia was also reviewed. The risks and benefits of the procedure and the sedation options and risks were discussed with the patient. All questions were answered, and informed consent was obtained. Prior Anticoagulants: The patient has taken no anticoagulant or antiplatelet agents. After reviewing the risks and benefits, the patient was deemed in satisfactory condition to undergo the procedure. After I obtained informed consent, the scope was passed under direct vision. Throughout the procedure, the patient's blood pressure, pulse, and oxygen saturations were monitored continuously. The pediatric colonoscope was introduced through the anus and advanced to the cecum, identified by appendiceal orifice and ileocecal valve. The colonoscopy was performed without difficulty. The patient tolerated the procedure well. The quality of the bowel preparation was good. The ileocecal valve, appendiceal orifice, and rectum were photographed. Scope In: 7:46:32 AM Scope Withdrawal Time 0 hours 5 minutes 38 seconds Scope Out: 7:54:43 AM Total Procedure Duration Time 0 hours 8 minutes 11 seconds Findings: The entire examined colon appeared normal on direct and retroflexion views. Impression: - The entire examined colon is normal on direct and retroflexion views. - No specimens collected. Recommendation: - Discharge patient to home. - Resume previous diet. - Continue present medications. - Repeat colonoscopy in 10 years for screening purposes. Procedure Code(s): --- Professional --- 20456, Colonoscopy, flexible; diagnostic, including collection of specimen(s) by brushing or washing, when performed (separate procedure) Diagnosis Code(s): --- Professional --- Z12.11, Encounter for screening for malignant neoplasm of colon CPT copyright 2021 [employer]. All rights reserved. The codes documented in this report are preliminary and upon brake operator review may be revised to meet current compliance requirements. Chris Vazquez MD 03/26/2023 8:03:08 AM This report has been signed electronically. Number of Addenda: 0 Note Initiated On: 03/26/2023 7:45 AM
--- NOTE | 2023-03-26 08:03 | OP.CCLET_ITS ---
03/26/2023 Cricket Manzo Re : Upper GI endoscopy procedure for Gigi De Leon Dear Jvoany This procedure was performed on Sunday, March 26, 2023. My impressions and recommendations are as follows: Impressions : - Normal esophagus. - Normal stomach. - Normal examined duodenum. - Biopsies were taken with a cold forceps for Helicobacter pylori testing. - Biopsies were taken with a cold forceps for histology at the gastroesophageal junction. Recommendations : - Discharge patient to home. - Resume previous diet. - Continue present medications. My findings are described in the full procedure note, which is enclosed. If I can be of further assistance, please feel free to contact me at Doctor phone number(s): , Work: . Sincerely, Chris Vazquez MD 03/26/2023 8:01:52 AM This report has been signed electronically.
--- NOTE | 2023-03-26 08:04 | OP.CCLET_ITS ---
03/26/2023 Cricket Manzo Re : Colonoscopy procedure for Gigi De Leon Dear Jovany This procedure was performed on Sunday, March 26, 2023. My impressions and recommendations are as follows: Impressions : - The entire examined colon is normal on direct and retroflexion views. - No specimens collected. Recommendations : - Discharge patient to home. - Resume previous diet. - Continue present medications. - Repeat colonoscopy in 10 years for screening purposes. My findings are described in the full procedure note, which is enclosed. If I can be of further assistance, please feel free to contact me at Doctor phone number(s): , Work: . Sincerely, Chris Vazquez MD 03/26/2023 8:03:08 AM This report has been signed electronically.
[2023-03-26 08:05] VITALS: BP 114/74; BP 130/90; PULSE 67; RESP 18; O2SAT 95
[2023-03-26 08:10] VITALS: BP 120/88; BP 130/90; PULSE 68; RESP 18; O2SAT 97
[2023-03-26 08:12] VITALS: BP 119/78; BP 130/90; PULSE 68; RESP 18; TEMP 36.8; O2SAT 96
[2023-03-26 08:34] VITALS: BP 130/90
== END 2023-03-26 08:37 | disposition home or self-care (01) ==
LOC: EN 06:18 → AC 06:19
PROVIDERS: PCP Family Medicine; Referring Provider Family Medicine; Visit Provider Surgery
PROC: 0DJD8ZZ Inspection of Lower Intestinal Tract, Via Natural or Artificial Opening Endoscopic (ICD-10-PCS; CPT 45378; principal; 2023-03-26 07:25)
DX: Z12.11 Encounter for screening for malignant neoplasm of colon (principal); K29.50 Unspecified chronic gastritis without bleeding; K21.00 Gastro-esophageal reflux disease with esophagitis, without bleeding; F41.9 Anxiety disorder, unspecified; Z79.899 Other long term (current) drug therapy; Z87.891 Personal history of nicotine dependence
CPT/HCPCS: 43239; 45378; 88305; 88313; 88342; J7120; J2405

== ENCOUNTER → 2023-10-21 | Outpatient (CLI) | payer OTHER, SELFPAY ==
--- OUTSIDE RECORDS SUMMARY | 2023-10-21 08:56 | XMS RPT_ITS | CCD ---
Author Name Unknown Address [facility] [address] [place] [address] Organization [facility] Care Team Providers Care Skirt Clipper Name Role Phone ADRIEN GARCIA II Attending Unavailjavon e MARRY GLOVER Attending Unavailable MARRY GLOVER Primary Care Unavailable MARRY GLOVER Admitting Unavailable Results Test Name Value Interpretation Reference Range Facil ity Encounters Encounter Date Encounter Type Care Provider Facility Start: 07-11-2020 End: 07-11-2020 Patient encounter procedure MARRY GLOVER [facility] Start: 08-28-2018 End: 08-28-2018 Patient encounter procedure ADRIEN GARCIA II [facility] Payers Date Payer Category Payer Unknown [id number] Unknown [id number] Summary Purpose Family History No Family History Records FoundNo Family History Records FoundNo Family History Records FoundNo Family History Records Found Advance Directives No Advanced Directives Records FoundNo Advanced Directives Records FoundNo Advanced Directives Records FoundNo Advanced Directives Records Found Additional Source Comments (unrecognized sect ion and content) No Status Records FoundNo Status Records FoundNo Status Records FoundNo Status Records Found INFORMATION SOURCE (unrecogn ized section and content) DATE CREATED AUTHOR AUTHOR'S ORGANIZ ATION 02/06/2019 [facility] DATE CREATED AUTHOR AUTHOR'S ORGANIZ ATION 07/13/2020 [facility] DATE CREATED AUTHOR AUTHOR'S ORGANIZ ATION 07/13/2020 [facility] FOR RECORDS PERTAINING TO PATIENTS WHO ARE OR HAVE BEEN ENROLLED IN A CHEMICAL DEPENDENCY/SUBSTANCEABUSE PROGRAM, SOME INFORMATION MAY BE OMITTED. This clinical summary was aggregated from multiple sources. Caution should be exercised in using it in the provision of clinical care. This summary normalizes information from multiple sources, and as a consequence, information in this document may materially change the coding, format and clinical context of patient data. In addition, data may be omitted in some cases. CLINICAL DECISIONS SHOULD BE BASED ON THE PRIMARY CLINICAL RECORDS. [facility] [employer] [facility]. provides no warranty or guarantee of the accuracy or completeness of information in this document.
[2023-10-21 10:16] LABS: Absolute Lymphocyte Count 2.89 X10^3/uL (0.83-4.51); Absolute Neutrophil Count 3.4 X10^3/uL (2.0-7.7); Basophil# 0.04 X10^3/uL; Basophil% 0.6 % (0-1); Eosinophils% 1.4 % (0-5); Hematocrit 52.7 % (40-54); Hemoglobin 17.5 g/dL (13.0-16.5); Lymphocyte # 2.89 X10^3/ul (0.83-4.51); Lymphocyte % 40.7 % (19-41); Mean Corp Hgb Conc 33.2 g/dL (32-36); Mean Corpuscular Volume 84.3 fL (80-94); Mean Platelet Vol. 10.4 fl (6.2-12.0); Monocyte# 0.67 X10^3/uL; Monocyte% 9.4 % (0-10); NRBC Flagged by Analyzer 0 % (0-5); Neutrophil # 3.36 X10^3/uL (2.7-7.7); Neutrophil % 47.3 % (47-70); Platelet Count 193 K/mm3 (150-450); RBC Distribution Width CV 13.5 % (11.6-14.6); RBC Distribution Width SD 41.5 fl (35.1-43.9); Red Blood Count 6.25 M/mm3 (4.6-6.2); White Blood Count 7.1 K/mm3 (4.4-11.0)
[2023-10-21 10:52] LABS: AST(SGOT) 22 U/L (15-37); Alanine Aminotransfer ALT/SGPT 41 U/L (16-61); Albumin, Serum 3.8 g/dL (3.2-5.0); Alkaline Phosphatase 58 U/L (45-117); Anion Gap 6 (5-15); BUN 19 mg/dL (7-18); BUN/Creat Ratio 20.1 RATIO (10-20); Chloride 104 mmol/L (98-107); Cholesterol 209 mg/dL (200); Creatinine, Serum 0.95 mg/dL (0.70-1.30); EST Glomerular Filtration Rate 90 mL/min (>60); Est Glom Filt Rate - Afr Amer 109 mL/min (>60); Globulin 3.8 g/dL (2.2-4.2); Glucose 104 mg/dL (74-106); High Density Lipoprotein 41 mg/dL; Potassium 4.4 mmol/L (3.5-5.1); Protein, Total 7.6 g/dL (6.4-8.2); Sodium Level 138 mmol/L (136-145); Triglycerides 175 mg/dL; Very Low Density Lipoprotein 35 mg/dL (5-40)
== END | disposition home or self-care (01) ==
LOC: LAB 08:35
PROVIDERS: PCP Family Medicine; Referring Provider Family Medicine; Visit Provider Family Medicine
DX: Z00.00 Encounter for general adult medical examination without abnormal findings (principal); Z13.1 Encounter for screening for diabetes mellitus; Z13.220 Encounter for screening for lipoid disorders
CPT/HCPCS: 36415; 80053; 80061; 85025

== ENCOUNTER → 2024-10-29 | Outpatient (CLI) | payer OTHER, SELFPAY ==
--- NOTE | 2024-10-29 11:44 | RAD_ITS ---
PROCEDURE: FINGER(S) MIN 2 VIEWS (RADFIN), 10/29/2024 REASON FOR EXAM: LEFT 2ND FINGER PRICK INJURY TECHNIQUE: AP, lateral, and oblique views of the LEFT index finger were obtained. COMPARISON: None FINDINGS: Fracture/dislocation: None visible. Joint space(s): Relatively preserved. Soft tissues: Question mild soft tissue swelling distally. Foreign bodies: None visible. Bone mineralization: Unremarkable. Other: None. RAD/Finger(s) Min 2 Views IMPRESSION: 1. No visible acute displaced fracture or visible radiopaque foreign body. 2. Question mild soft tissue swelling distally. Correlate with exam. Reading Location: [id number]
== END | disposition home or self-care (01) ==
PROVIDERS: PCP Family Medicine; Referring Provider Family Medicine; Visit Provider Family Medicine
DX: S69.92XA Unspecified injury of left wrist, hand and finger(s), initial encounter (principal)
CPT/HCPCS: 73140